=== PATIENT | female | born 1975 | race Two or more races ===

== ENCOUNTER → 2024-04-21 | Outpatient (CLI) | payer BC, SELFPAY ==
--- NOTE | 2024-04-21 14:45 | XR_ITS ---
Examination: Diagnostic digital mammography, unilateral, right Computer aided detection 3-D breast Tomosynthesis, unilateral Date and time of exam: April 21, 2024 1431 hours INDICATIONS: 4 mm focal asymmetry upper right breast MLO view Technique: Nonmagnified MLO, CC views of the right breast have been obtained, reconstructed from 3-D Tomosynthesis images. R2 computer aided detection program utilized for evaluation of suspicious masses and/or abnormal calcifications. 3-D Tomosynthesis images obtained. Findings: Scattered areas of fibroglandular density No suspicious mass noted Benign calcifications Dilated ducts retroareolar Impression: BI-RADS category 2: Benign findings Yearly follow-up mammography recommended
== END | disposition home or self-care (01) ==
LOC: CDIM 14:17
PROVIDERS: PCP Internal Medicine; Referring Provider Internal Medicine; Visit Provider Internal Medicine
DX: R92.321 Mammographic fibroglandular density, right breast (principal); R92.1 Mammographic calcification found on diagnostic imaging of breast
CPT/HCPCS: 77061; 77065; G0279

== ENCOUNTER → 2024-05-20 | Outpatient (CLI) | payer BC, SELFPAY ==
--- NOTE | 2024-05-20 15:44 | XR_ITS ---
Examination: Right knee 2 views Technique one AP lateral right knee 2 views Exam date and time: May 20, 2024 1604 hrs. Indications: Right knee pain beginning one week ago no trauma. Findings: Orthopedic hardware proximal medial tibia Advanced tricompartment osteoarthritis, most severe medial lateral joint spaces No fracture or dislocation Impression: Advanced tricompartment osteoarthritis
--- NOTE | 2024-05-20 15:44 | XR_ITS ---
Examination: Bilateral knees, standing AP single view Technique: Standing AP bilateral knees, single view Exam date and time: 19/06/2023 at 1558 hrs. Indications: Knee pain beginning one week ago. Findings: Significant osteoarthritis medial lateral joint spaces right knee Moderate osteoarthritis medial lateral joint spaces left knee Recommend follow-up axial views of right and left patella 2 exclude chronic mild to moderate lateral subluxation of the patella Impression: Significant osteoarthritis medial lateral joint spaces right knee Moderate osteoarthritis medial lateral joint spaces left knee Recommend axial views of right and left patella
== END | disposition home or self-care (01) ==
LOC: CDIM 15:34
PROVIDERS: PCP Internal Medicine; Referring Provider Orthopaedic Surgery; Visit Provider Orthopaedic Surgery
DX: M17.0 Bilateral primary osteoarthritis of knee (principal)
CPT/HCPCS: 73560; 73565

== ENCOUNTER → 2024-08-20 | Outpatient (CLI) | payer BC, SELFPAY ==
--- NOTE | 2024-08-20 15:44 | XR_ITS ---
Examination: Left knee 2 views TECHNIQUE: AP lateral left knee 2 views Exam date and time: July 22, 2024 at 1606 hours INDICATIONS: Left knee pain beginning one month ago. FINDINGS: Moderate osteoarthritis lateral joint space Mild osteoarthritis patellofemoral joint No fracture Small knee effusion IMPRESSION: Moderate osteoarthritis lateral joint space
--- NOTE | 2024-08-20 15:44 | XR_ITS ---
Examination: Left ankle 2 views TECHNIQUE: AP lateral right ankle 2 views Exam date and time: September 19, 2024 1610 hours INDICATIONS: Left ankle pain one month. FINDINGS: Mild osteoarthritis talonavicular joint 3 mm plantar bony calcaneal spur Mild narrowing tibiotalar joint No fracture IMPRESSION: Mild osteoarthritis as above Small plantar bony calcaneal spur
--- NOTE | 2024-08-20 15:44 | XR_ITS ---
Examination: Left foot 2 views Technique one AP lateral left foot 2 views Exam date and time: August 20, 2024 1611 hours INDICATIONS: Left foot pain beginning one month ago. FINDINGS: Mild narrowing first metatarsophalangeal joint and first tarsometatarsal joint No acute fracture 4 mm plantar bony calcaneal spur Mild narrowing tibiotalar joint Mild narrowing talonavicular joint IMPRESSION: Mild osteoarthritis as above Small plantar bony calcaneal spur
--- NOTE | 2024-08-20 15:44 | XR_ITS ---
Examination: Bilateral knees, standing AP single view Technique: Standing AP bilateral knees, standing single view Exam date and time: August 20, 2024 1554 hours INDICATIONS: Left knee pain beginning one month ago FINDINGS: Moderate osteopenia. Advanced narrowing lateral joint space right knee Moderate osteoarthritis medial joint space right knee Orthopedic hardware proximal medial right tibia Moderate osteoarthritis lateral joint space left knee No fractures IMPRESSION: Advanced narrowing lateral joint space right knee Moderate osteoarthritis medial joint space right knee Moderate osteoarthritis lateral joint space left knee
== END | disposition home or self-care (01) ==
PROVIDERS: PCP Internal Medicine; Referring Provider Orthopaedic Surgery; Visit Provider Orthopaedic Surgery
DX: M19.91 Primary osteoarthritis, unspecified site (principal); M77.32 Calcaneal spur, left foot; M19.072 Primary osteoarthritis, left ankle and foot; M17.0 Bilateral primary osteoarthritis of knee
CPT/HCPCS: 73560; 73565; 73600; 73620

== ENCOUNTER 2024-11-06 09:30 | Outpatient (AMB) | payer BC, SELFPAY ==
--- NOTE | 2024-11-06 10:09 | PD.ORTHCLVIS ---
Vital signs 11/06/24 10:10 Height 1.7 m Height Method Stated Weight 114.39 kg Weight Measurement Method Standing Scale BMI 39.4 BP 136/86 H Blood Pressure Source Automatic Cuff Blood Pressure Location Left Upper Arm Position Sitting Respiration 18 Pulse 68 Pulse Source Monitor Temp 97.8 F Temp Source Temporal Artery Scan Pulse Oximetry (%) 98 Oxygen Delivery Method Room Air Med/Allergies Allergies & Medications Allergies NKA* Allergy (Uncoded 11/06/24 10:10) Medication Reconciliation ibuprofen 200 mg tablet 200 mg PO Q6H PRN 11/06/24 [History Confirmed 11/06/24] meloxicam 7.5 mg tablet 7.5 mg PO QDAY #45 tabs 11/06/24 [Rx] Exam Exam Breathing is nonlabored. Patient has a normal mood and affect. Bilateral extremities were evaluated and demonstrates sensation intact to light touch. Palpable pedal pulses are present. No significant edema is present. Bilateral hips were examined. The patient has no pain with log roll of the hips. Internal rotation to 30 degrees and external rotation to 30 degrees is painless. Negative FADIR. Left knee was examined today. The left knee is in reasonable alignment. Range of motion from 0-120 degrees. Knee is stable to varus and valgus as well as AP translation with <5mm. Patient has a negative McMurrays. There is no pain with patellofemoral compression and no crepitus noted. The knee is nontender to palpation. The right knee was also examined. The right knee is in varus alignment. Range of motion from 0-115 degrees. Knee is stable to varus and valgus as well as AP translation with <5mm. Patient has a negative McMurrays. There is no pain with patellofemoral compression and no crepitus noted. The knee is tender to palpation medially. X-rays demonstrate complete joint space obliteration. She does have a prior ACL stable. This would not be in the way of the tibial keel. Assessment and Plan Problem List (1) Degenerative arthritis of knee, bilateral: Status: Acute Plan: Patient is a pleasant 49-year-old female with bilateral knee pain and bilateral knee arthritis. We discussed different treatment options. We discussed anti-inflammatories, injections, and physical therapy. She would like to try a cortisone injection today. We also discussed weight loss in great detail today. Recommend knee cortisone injection as patient would like to proceed with conservative treatment at this time. The risks and benefits of the procedure were reviewed with the patient and patient gave verbal consent to continue with the procedure. Procedure: performed by Dr. Ruvalcaba Using sterile technique the Right knee was thoroughly prepped with alcohol, and approximately 1 cc of Kenalog 40 mg/mL and 4 cc of 1% lidocaine was injected without resistance into the medial tibial femoral joint space. The patient tolerated the procedure. Office Procedures GNS Level of Care Nursing/Assessment Patient Status: Initial/New Patient Nursing Assessment/Reassesment: Medication Reconciliation, Update PMH in EMR and Vital Signs Coordination of Care: Complex Care and Chronic Disease 1-5, Education Complex Pt/Fam, Consent,records obtained, informed consent, 1 Ins Authorization, Lab and Imaging orders, Results/Orders obtained and Staff clarify orders New Patient Charge New Patient Point Assignment: 1124 New Patient Point Charge: ELECTRONIC SYSTEM ENGINEER Level 4 (4883-3838) Surgical Proc/IM SQ injection Major Surgical Procedure: Yes (KNEE INJECTION) Medication Given Medication Given Medication Given: Yes Documented Dose Given: 4 Route: Infiitration Medication Given Medication Given Medication Given: Yes Documented Dose Given: 1 Route: Infiitration Office Meds Xylocaine 10 mg/mL (1 %) injection solution Performing Provider: Heriberto Ruvalcaba MD Performing Location: [facility] Administered by: Heriberto Ruvalcaba MD on 11/06/24 10:21 Dose Route Admin Location Dispensed Lot Number Expiration Date [facility] Missionary Coordinator 20 mL Infiltration 20 mL [id number] 11/18/27 07507-111-24 [facility] triamcinolone acetonide 40 mg/mL suspension for injection Performing Provider: Heriberto Ruvalcaba MD Performing Location: [facility] Administered by: Heriberto Ruvalcaba MD on 11/06/24 10:21 Dose Route Admin Location Dispensed Lot Number Expiration Date [facility] Missionary Coordinator 40 mg intra-articular KNEE 1 mL [id number] 12/17/25 52042-583-54 AURELIO DAVIS MA Intake Visit Data Collection New Patient or Established: New Patient (never been to [facility]) Reason for Visit:: BL KNEE PAIN PCP or OBGYN visit in last 3 months: Yes Hx Now: No Do You Feel Safe at Home: Yes Authorities Contacted: N/A Questionairres Past Medical History Past Medical History Have you ever been diagnosed with any of the following: Respiratory Problems Smoking: No Smoking Exposure: No Subjective Visit Visit for: new patient and knee Immunization / Flu Flu Vaccine in the Last 12 Months: Yes Flu Vaccine Exclusion Criteria: Already Received History of Present Illness Chief complaint: Right knee pain Date of injury / onset of symptoms: +3YEARS Patient is a pleasant 49-year-old female with 3 years of right knee pain. She had a prior ACL surgery done over 10 years ago. Not had any injections. She has tried anti-inflammatories. She reports the pain is on the medial and lateral aspects of her right knee Personal History BMI Counceling provided: Yes Pain Pain level (0-10): 6 Pain duration: CONSTANT MOVEMENT Pain location: inside (medial), outside (lateral) and anterior Pain quality: sharp, dull, aching and burning Pain timing: night, increases with activity and stairs Associated signs & symptoms: weakness Ambulatory data Ambulatory device: none Treatments Improvement with previous injections: No Improvement with PT: No Improvement with NSAIDS: no Review of Systems Review of Systems: All systems negative unless otherwise noted in HPI.
[2024-11-06 10:10] VITALS: BP 136/86; PULSE 68; RESP 18; TEMP 36.6; O2SAT 98; BMI 39.4
== END 2024-11-06 10:29 | disposition home or self-care (01) ==
LOC: HODSRG 09:30
PROVIDERS: PCP Internal Medicine; Referring Provider Internal Medicine; Supervising Provider Orthopaedic Surgery Adult Reconstructive Orthopaedic Surgery; Visit Provider Orthopaedic Surgery Adult Reconstructive Orthopaedic Surgery
DX: M17.0 Bilateral primary osteoarthritis of knee (principal); M25.562 Pain in left knee; M25.561 Pain in right knee
CPT/HCPCS: 20610; 99204; J3301; J3490; G0463

== ENCOUNTER → 2025-01-13 | Outpatient (CLI) | payer BC, SELFPAY ==
[2025-01-13 09:39] LABS: Basophils # (Auto) 0.0 Thou/mm3 (0.0-0.2); Basophils % (Auto) 0 % (0-2.5); Eosinophils # (Auto) 0.2 Thou/mm3 (0.0-0.5); Eosinophils % (Auto) 2 % (0-10); Hematocrit 37.4 % (36.0-46.0); Hemoglobin 12.1 g/dL (12.0-16.0); Immature Granulocytes Auto 0.02 Thou/mm3 (0.00-0.00); Lymphocytes # (Auto) 2.6 Thou/mm3 (1.0-4.8); Lymphocytes % (Auto) 34 % (10-50); Mean Corpuscular HGB Conc 32.4 g/dl (31.0-37.0); Mean Corpuscular Hemoglobin 27.8 pg (25.0-35.0); Mean Corpuscular Volume 86 fL (80-100); Monocytes # (Auto) 0.5 Thou/mm3 (0.0-0.8); Monocytes % (Auto) 7 % (0-12); Neutrophils # (Auto) 4.3 Thou/mm3 (1.8-7.7); Neutrophils % (Auto) 56 % (37-80); Nucleated Red Blood Cell # 0.00 Thou/mm3 (0.00-0.00); Nucleated Red Blood Cell % 0 /100 WBC (0); Platelet Count 286 Thou/mm3 (140-440); RDW Standard Deviation 42.5 fL (36.4-46.3); Red Blood Count 4.35 Miln/mm3 (4.00-5.20); White Blood Count 7.5 Thou/mm3 (3.6-11.0)
[2025-01-13 09:50] LABS: Glucose Estimated Average 100 mg/dL (80-131); Hemoglobin A1C 5.1 % Hgb (4.8-6.0)
[2025-01-13 10:02] LABS: Ferritin 10 ng/mL (7.3-270.7)
== END | disposition home or self-care (01) ==
LOC: COPL 08:47
PROVIDERS: PCP Internal Medicine; Referring Provider Internal Medicine; Visit Provider Internal Medicine
DX: D50.8 Other iron deficiency anemias (principal); R73.03 Prediabetes
CPT/HCPCS: 36415; 82728; 83036; 85025

== ENCOUNTER → 2025-03-17 | Outpatient (CLI) | payer BC, SELFPAY ==
[2025-03-17 10:05] LABS: Collection Type, Urine Clean Catch; WBC,Urine 0 /hpf (0-5)
[2025-03-17 11:05] LABS: Bacteria,Urine Rare; Bilirubin,Urine Negative (Negative); Blood,Urine Negative (Negative); Clarity,Urine Clear (Clear/Hazy); Color,Urine Colorless (Lt Yel-Yel); Glucose, Urine Negative (Negative); Ketones,Urine Negative (Negative); Leukocyte Esterase,Urine Negative (Negative); Nitrite,Urine Negative (Negative); PH,Urine 7.0 (5.0-7.0); Protein,Urine Negative (Neg - Trace); RBC,Urine 1 /hpf (0-3); Specific Gravity,Urine 1.004 (1.001-1.035); Squamous Epithelial Cell,Urine 2 /hpf (0-5); Urobilinogen,Urine Negative mg/dL (0.0-1.0)
[2025-03-17 11:08] LABS: Basophils # (Auto) 0.1 Thou/mm3 (0.0-0.2); Basophils % (Auto) 1 % (0-2.5); Eosinophils # (Auto) 0.1 Thou/mm3 (0.0-0.5); Eosinophils % (Auto) 2 % (0-10); Hematocrit 38.3 % (36.0-46.0); Hemoglobin 12.1 g/dL (12.0-16.0); Immature Granulocytes Auto 0.01 Thou/mm3 (0.00-0.00); Lymphocytes # (Auto) 2.5 Thou/mm3 (1.0-4.8); Lymphocytes % (Auto) 33 % (10-50); Mean Corpuscular HGB Conc 31.6 g/dl (31.0-37.0); Mean Corpuscular Hemoglobin 27.4 pg (25.0-35.0); Mean Corpuscular Volume 87 fL (80-100); Monocytes # (Auto) 0.5 Thou/mm3 (0.0-0.8); Monocytes % (Auto) 7 % (0-12); Neutrophils # (Auto) 4.4 Thou/mm3 (1.8-7.7); Neutrophils % (Auto) 58 % (37-80); Nucleated Red Blood Cell # 0.00 Thou/mm3 (0.00-0.00); Nucleated Red Blood Cell % 0 /100 WBC (0); Platelet Count 209 Thou/mm3 (140-440); RDW Standard Deviation 41.0 fL (36.4-46.3); Red Blood Count 4.41 Miln/mm3 (4.00-5.20); White Blood Count 7.5 Thou/mm3 (3.6-11.0)
[2025-03-17 11:09] LABS: Glucose Estimated Average 105 mg/dL (80-131); Hemoglobin A1C 5.3 % Hgb (4.8-6.0)
[2025-03-17 11:16] LABS: Vitamin B12 554 pg/mL (211-911); Vitamin D 25 Hydroxy Total 25.6 ng/mL (7.3-40.2)
[2025-03-17 11:17] LABS: Alanine Aminotransferase 12 U/L (10-49); Albumin, Serum 4.7 gm/dL (3.5-5.0); Albumin/Globulin Ratio 2.0 (1.2-2.2); Alkaline Phosphatase 68 U/L (46-116); Anion Gap 10 (7-16); Aspartate Amino Transferase 19 U/L (0-34); BUN/Creatinine Ratio 12 Ratio (12-20); Bilirubin,Total 0.6 mg/dL (0.3-1.2); Blood Urea Nitrogen 7 mg/dL (9-23); Calcium 9.3 mg/dL (8.3-10.6); Calcium (Corrected) 9.3 mg/dL (8.5-10.1); Carbon Dioxide 27.8 mMol/L (20.0-31.0); Cardiac Risk Estimate 2.5 RATIO (3.7-5.6); Chloride 104 mMol/L (98-107); Cholesterol 220 mg/dL (132-200); Creatinine (Component) 0.6 mg/dL (0.6-1.3); Globulin 2.3 gm/dL (2.3-3.5); Glucose 93 mg/dL (74-106); HDL Cholesterol 87 mg/dL (40-60); LDL Cholesterol,Calculated 111 mg/dL (0-130); Osmolality,Calculated 281 (275-295); Potassium 4.1 mMol/L (3.4-5.1); Sodium 142 mMol/L (136-145); Thyroid Stimulating Hormone 1.10 uIU/mL (0.55-4.78); Total Protein 7.0 gm/dL (5.7-8.2); Triglycerides 109 mg/dL (30-150); Uric Acid 7.0 mg/dL (3.1-7.8); eGFR > 60 See Note
[2025-03-17 11:34] LABS: Ferritin 8 ng/mL (7.3-270.7)
== END | disposition home or self-care (01) ==
PROVIDERS: PCP Internal Medicine; Referring Provider Internal Medicine; Visit Provider Internal Medicine
DX: Z00.00 Encounter for general adult medical examination without abnormal findings (principal)
CPT/HCPCS: 36415; 80053; 80061; 81001; 82306; 82607; 82728; 83036; 84443; 84550; 85025

== ENCOUNTER 2025-04-09 14:38 | Outpatient (AMB) | payer BC, SELFPAY ==
--- NOTE | 2025-04-09 14:48 | ORTHONT_ITS ---
Vital signs 04/09/25 14:49 Height 1.7 m Height Method Measured Weight 114.078 kg Weight Measurement Method Standing Scale BMI 39.4 BP 142/86 H Blood Pressure Source Automatic Cuff Blood Pressure Location Left Upper Arm Position Sitting Respiration 18 Pulse 80 Pulse Source Monitor Temp 97.8 F Temp Source Temporal Artery Scan Pulse Oximetry (%) 100 Oxygen Delivery Method Room Air Med/Allergies Allergies & Medications Allergies NKA* Allergy (Uncoded 04/09/25 14:50) Medication Reconciliation ibuprofen 200 mg tablet 200 mg PO Q6H PRN 11/06/24 [History Confirmed 04/09/25] meloxicam 7.5 mg tablet 7.5 mg PO QDAY #45 tabs 11/06/24 [Rx Confirmed 04/09/25] Exam Exam Breathing is nonlabored. Patient has a normal mood and affect. Bilateral extremities were evaluated and demonstrates sensation intact to light touch. Palpable pedal pulses are present. No significant edema is present. Bilateral hips were examined. The patient has no pain with log roll of the hips. Internal rotation to 30 degrees and external rotation to 30 degrees is painless. Negative FADIR. Left knee was examined today. The left knee is in reasonable alignment. Range of motion from 0-120 degrees. Knee is stable to varus and valgus as well as AP translation with <5mm. Patient has a negative McMurrays. There is no pain with patellofemoral compression and no crepitus noted. The knee is nontender to palpation. The right knee was also examined. The right knee is in varus alignment. Range of motion from 0-115 degrees. Knee is stable to varus and valgus as well as AP translation with <5mm. Patient has a negative McMurrays. There is no pain with patellofemoral compression and no crepitus noted. The knee is tender to palpation medially. X-rays demonstrate complete joint space obliteration of the right knee and moderate arthritis of the left knee Assessment and Plan Problem List (1) Degenerative arthritis of knee, bilateral: Status: Acute Plan: Patient is a pleasant 49-year-old female with bilateral knee pain and bilateral knee arthritis. We discussed different treatment options. We discussed anti- inflammatories, injections, and physical therapy. She would like to try a cortisone injection today of the left knee. We also discussed weight loss in great detail today. Recommend knee cortisone injection as patient would like to proceed with conservative treatment at this time. The risks and benefits of the procedure were reviewed with the patient and patient gave verbal consent to continue with the procedure. Procedure: performed by Dr. Ruvalcaba Using sterile technique the left knee was thoroughly prepped with alcohol, and approximately 1 cc of Depo-Medrol 80mg/mL and 4 cc of 0.2% ropivacaine was injected without resistance into the medial tibial femoral joint space. The patient tolerated the procedure. Office Procedures GNS Level of Care Nursing/Assessment Patient Status: Established Patient Nursing Assessment/Reassesment: Medication Reconciliation, Update PMH in EMR and Vital Signs Coordination of Care: Complex Care and Chronic Disease 1-5, Education Complex Pt/Fam, Consent,records obtained, informed consent, Results/Orders obtained and Staff clarify orders Established Patient Charge Established Patient Point Assignment: 95 Established Patient Point Charge: EP Level 3 (80-115) MA Intake Visit Data Collection New Patient or Established: Established Patient (seen at [facility] within 3 years) Reason for Visit:: RT KNEE F/U Seen by Clinical Staff ONLY (RN/MA): No Service Superintendent Required: No PCP or OBGYN visit in last 3 months: Yes Hx Now: No Do You Feel Safe at Home: Yes Authorities Contacted: N/A Questionairres Past Medical History Past Medical History Have you ever been diagnosed with any of the following: Respiratory Problems Smoking: No Smoking Exposure: No Subjective Visit Visit for: follow up visit and knee Immunization / Flu Flu Vaccine in the Last 12 Months: Yes Flu Vaccine Exclusion Criteria: Already Received History of Present Illness Chief complaint: LT KNEE F/U Date of injury / onset of symptoms: +3YEARS Patient is a pleasant 50-year-old female with 3 years of right knee pain. She had a prior ACL surgery done over 10 years ago. Not had any injections. She has tried anti-inflammatories. She reports the pain is on the medial and lateral aspects of her right knee and left knee. She had a fall recently and the pain has increased recently. Personal History Red flag PMH: none BMI Counceling provided: Yes Pain Pain level (0-10): 6 Pain duration: CONSTANT MOVEMENT Pain location: inside (medial), outside (lateral) and anterior Pain quality: sharp, dull, aching and burning Pain timing: night, increases with activity and stairs Associated signs & symptoms: weakness Ambulatory data Ambulatory device: none Treatments Improvement with previous injections: No Improvement with PT: No Improvement with NSAIDS: no Review of Systems Review of Systems: All systems negative unless otherwise noted in HPI.
[2025-04-09 14:49] VITALS: BP 142/86; PULSE 80; RESP 18; TEMP 36.6; O2SAT 100; BMI 39.4
== END 2025-04-09 15:02 | disposition home or self-care (01) ==
LOC: HODSRG 14:38
PROVIDERS: PCP Internal Medicine; Referring Provider Internal Medicine; Supervising Provider Orthopaedic Surgery Adult Reconstructive Orthopaedic Surgery; Visit Provider Orthopaedic Surgery Adult Reconstructive Orthopaedic Surgery
DX: M25.562 Pain in left knee (principal); M25.561 Pain in right knee; M17.0 Bilateral primary osteoarthritis of knee
CPT/HCPCS: 20610; 99213; J1010; J2795; G0463